=== PATIENT | male | born 1975 | race Caucasian/White ===

== ENCOUNTER 2023-09-27 06:16 | Day surgery (SDC) | payer OTHER ==
[~2023-09-27] VITALS: Ht 180.3 cm; Wt 91.7 kg
[2023-09-27] MEDS ORDERED: SINGULAIR 110 MG/TAB PO (06:54)
[2023-09-27] MEDS ORDERED: IBU800 M1 PO (06:55)
[2023-09-27] MEDS ORDERED: FLOMAX 0.40.4 MG/CAP PO (06:55)
[2023-09-27 07:20] VITALS: BP 129/87; PULSE 60; TEMP 97.4
[2023-09-27 08:45] VITALS: BP 110/85; PULSE 52; TEMP 97.5
[2023-09-27 09:00] VITALS: BP 129/91; PULSE 53
[2023-09-27 09:15] VITALS: BP 129/87; PULSE 52
--- NOTE | 2023-09-27 09:30 | NUR ---
0845- PATIENT RETURNS TO [facility] [place] [place] [facility] VIA CART. PT AWAKE AND ALERT. RESPIRATIONS UNLABORED. AMBULATED TO RECLINER CHAIR WITH 2:1 SBA. PT DENIES NAUSEA OR ABDOMINAL PAIN. HOOKED UP TO MONITOR AND VS OBTAINED. CALL LIGHT AT SIDE AND PRESENT. 0852- PATIENT TOLERATING APPLE JUICE AND PUDDING WITHOUT NAUSEA. 0857- D/C INSTRUCTIONS REVIEWED WITH PATIENT. PT VERBALIZED UNDERSTANDING AND A COPY OF INSTRUCTIONS PROVIDED IN D/C FOLDER. 0911- PATIENT DRESSES SELF. 0921- DR. RADFORD IN ROOM SPEAKING WITH PATIENT. 0930- PATIENT DISCHARGED FROM UNIT VIA W/C TO A PERSONAL VEHICLE. PT LEFT HOSPITAL IN STABLE CONDITION.
== END 2023-09-27 09:30 | disposition home or self-care (01) ==
LOC: SDCO 06:16
DX: K92.1 Melena (principal); K64.0 First degree hemorrhoids
CPT/HCPCS: J2704; J7120